=== PATIENT | female | born 2000 | race African-American/Black ===

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

== ENCOUNTER 2019-07-26 11:31 | Emergency (ER) | payer MEDICAID ==
[~2019-07-26] VITALS: Ht 162.6 cm; Wt 68.0 kg
[~2019-07-26 11:31] MED LIST: ZOFRAN ODT4 MG ORAL
--- NOTE | 2019-07-26 11:40 | NUR ---
ER Nurse Note: Patient walked in to ER from home due to Lt pinky toe pain 05/16. dried blood present on Lt pinky toe. Patient alert and oriented x4 and amulatory. Skin clean and intact. Calm and cooperative. No acute distress noted at this time.
[2019-07-26] MEDS ORDERED: NKM (11:43)
--- NOTE | 2019-07-26 12:48 | Emergency Room Report ---
History of Present Illness General Chief Complaint: Lower Extremity Injury Source: Patient Present Illness HPI 19-year-old female with no symptom past medical history complaining of pain plantar side of left fifth toe x3 days. Patient does not recall how it happened however reports that it happened after she was wearing high heels. Laceration is noted in the fold of the skin of the left fifth toe which has already started to close. Patient reports that she does not know which if she is up-to-date with tetanus shot however does not want to have a tetanus shot today. Rating the pain 5 out of 10 without radiation. Denies any new injury or fall. Has not taken medication for symptom relief. Patient has full range of motion of the affected area, no bony tenderness is noted, and no foreign body is suspected. No motor or sensory deficits noted. Allergies: Coded Allergies: No Known Allergies (Unverified , 06/18/17) Patient History Past Medical History: see triage record Past Surgical History: none Pertinent Family History: none Last Menstrual Period: 07/10/19 Now: No : 0 Para: 0 Immunizations: other - not UTD with tdap but refuses Reviewed Nursing Documentation: PMH: Agreed; PSxH: Agreed Nursing Documentation-PMH Past Medical History: No Stated History Review of Systems All Other Systems: negative except mentioned in HPI Physical Exam Vital Signs Date Time Temp Pulse Resp B/P (MAP) Pulse Ox O2 Delivery O2 Flow Rate FiO2 07/26/19 11:39 98.4 93 18 103/67 (79) 94 Room Air Sp02 EP Interpretation: reviewed, normal General Appearance: no apparent distress, alert, GCS 15, non-toxic Head: normocephalic, atraumatic Eyes: bilateral eye normal inspection, bilateral eye PERRL ENT: hearing grossly normal, normal pharynx, no angioedema, normal voice Neck: full range of motion, supple/symm/no masses Respiratory: chest non-tender, lungs clear, normal breath sounds, no rhonchi, speaking full sentences Cardiovascular #1: regular rate, rhythm, no edema, no murmur Cardiovascular #2: 2+ dorsalis pedis (R), 2+ dorsalis pedis (L) Gastrointestinal: normal bowel sounds, non tender, soft, non-distended, no guarding, no rebound Genitourinary: normal inspection, no CVA tenderness Musculoskeletal: back normal, gait/station normal, normal range of motion, non- tender Neurologic: alert, oriented x3, responsive, motor strength/tone normal, sensory intact, speech normal Psychiatric: judgement/insight normal, memory normal, mood/affect normal, no suicidal/homicidal ideation Skin: laceration - Plantar side of left fifth toe Lymphatic: no adenopathy Procedures Laceration/Wound Repair Laceration/Wound Repair : Consent: Verbal Wound Location: lower extremity - left fifth toe Wound's Depth, Shape: superficial Wound Length (cm): 1 Wound Explored: no foreign body removed Betadine Prep?: Yes Wound Repaired With: Steri-strips Layer Closure?: Yes Sterile Dressing Applied?: Yes Splint Applied?: No Sling Applied?: No Patient Tolerated: Well Complications: None Medical Decision Making PA Attestation All my diagnosis and treatment plans were reviewed ad discussed with my supervising physician Dr. Patterson Diagnostic Impression: Primary Impression: Toe laceration ER Course 19-year-old female with no symptom past medical history complaining of pain plantar side of left fifth toe x3 days. Patient does not recall how it happened however reports that it happened after she was wearing high heels. Laceration is noted in the fold of the skin of the left fifth toe which has already started to close. Patient reports that she does not know which if she is up-to-date with tetanus shot however does not want to have a tetanus shot today. Rating the pain 5 out of 10 without radiation. Denies any new injury or fall. Has not taken medication for symptom relief. Patient has full range of motion of the affected area, no bony tenderness is noted, and no foreign body is suspected. No motor or sensory deficits noted. Ddx considered but are not limited to : Superficial laceration, deep laceration , tendon involvement with laceration, laceration with foreign body Vital signs: are WNL, pt. is afebrile H&PE are most consistent with: Superficial laceration ORDERS: Keflex, ibuprofen, foot x-ray ED INTERVENTIONS: Wound clean and dressed and closed DISCHARGE: At this time pt. is stable for d/c to home. Will provide printed patient care instructions, and any necessary prescriptions. Care plan and follow up instructions have been discussed with the patient prior to discharge. Advised patient to follow-up with her primary care provider avoid strenuous physical activity. If worsening symptoms return to the emergency room Other X-Ray Diagnostic Results Other X-Ray Diagnostic Results : X-Ray ordered: foot # of Views/Limited Vs Complete: 3 View Indication: Pain EP Interpretation: Yes JULIANNE Xray: Interpretation reviewed, by supervising MD, and agrees with findings. Interpretation: no dislocation, no soft tissue swelling, no fractures, other - no FB Impression: No acute disease Electronically Signed by: Mahesh Carmona PA-C Last Vital Signs Date Time Temp Pulse Resp B/P (MAP) Pulse Ox O2 Delivery O2 Flow Rate FiO2 07/26/19 11:39 98.4 93 18 103/67 (79) 94 Room Air Disposition: HOME, SELF-CARE Condition: Stable Scripts Ibuprofen* (MOTRIN*) 600 Mg Tablet 600 MG ORAL Q8H PRN for For Pain, #30 TAB 0 Refills Prov: Mahesh Perez 07/26/19 Cephalexin* (KEFLEX*) 500 Mg Capsule 500 MG ORAL EVERY 6 HOURS for 7 Days, #28 CAP Prov: Mahesh Perez 07/26/19 Referrals: NOT CHOSEN IPA/,REFERRING (PCP) Patient Instructions: Laceration Care, Adult, [id number] Additional Instructions: Follow-up with your primary care provider take medication as directed, if worsening symptoms return to emergency room Mahesh Perez Jul 26, 2019 12:48
[2019-07-26] MEDS ORDERED: CEPHALEXIN500 MG ORAL (12:49)
[2019-07-26] MEDS ORDERED: IBUPROFEN600 MG ORAL (12:49)
[2019-07-26 13:24] VITALS: BP 103/67
--- NOTE | 2019-07-26 13:24 | NUR ---
ED Nurse Note: Pt cleared by health care Provider for discharge. DC instructions/prescription was given and explained to pt and verbalized understanding of teachings. All medical deviecs such as ID band removed. Pt is AAO x4, ambulatory and left with all personal belongings.
--- NOTE | 2019-07-27 11:27 | Diagnostic Imaging Report ---
Indication: Fifth digit pain Technique: 3 views left foot Comparison: none Findings: No acute fractures. No dislocations. The joint spaces are preserved. Impression: No acute process
== END 2019-07-26 13:24 | disposition home or self-care (01) ==
LOC: EMR 12:16
DX: S91.115A Laceration without foreign body of left lesser toe(s) without damage to nail, initial encounter (principal); X58.XXXA Exposure to other specified factors, initial encounter; Y92.9 Unspecified place or not applicable
CPT/HCPCS: 73630; Z7502; 99283